=== PATIENT | female | born 1970 | race Caucasian/White ===

== ENCOUNTER 2018-05-11 03:29 | Emergency (ER) | payer SELFPAY ==
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
[2018-05-11 07:00] VITALS: PULSE 79; RESP 18; O2SAT 99
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
--- NOTE | 2018-05-11 08:59 | CT ---
Date of service: 05/11/2018 PROCEDURE: CT HEAD WITHOUT CONTRAST. HISTORY: r/o fx and ICH COMPARISON: None available. TECHNIQUE: Axial computed tomography images were obtained through the head/brain without intravenous contrast. Radiation dose: Total exam DLP = mGy-cm. This CT exam was performed using one or more of the following dose reduction techniques: Automated exposure control, adjustment of the mA and/or kV according to patient size, and/or use of iterative reconstruction technique. FINDINGS: HEMORRHAGE: No intracranial hemorrhage. BRAIN: No mass effect or edema. No atrophy or chronic microvascular ischemic changes. VENTRICLES: Unremarkable. No hydrocephalus. CALVARIUM: Unremarkable. PARANASAL SINUSES: Unremarkable as visualized. No significant inflammatory changes. MASTOID AIR CELLS: Unremarkable as visualized. No inflammatory changes. OTHER FINDINGS: Small radiopaque density along the right globe possibly representing postsurgical material versus calcification versus radiopaque foreign body. Correlate clinically. . IMPRESSION: No acute hemorrhage.
[2018-05-11 09:04] VITALS: BP 100/58; TEMP 98.3
--- NOTE | 2018-05-11 09:08 | CT ---
Date of service: 05/11/2018 PROCEDURE: HISTORY: r/o fx COMPARISON: TECHNIQUE: FINDINGS: Small radiopaque density at the anterior lateral age of the right globe which could represent postsurgical material versus calcification versus foreign body. Right facial and left facial, nasal, maxillary soft tissue swelling and hematoma acute comminuted displaced left nasal an the left nasal tip bone fracture. IMPRESSION: As above.
== END 2018-05-11 09:27 | disposition home or self-care (01) ==
LOC: ED 03:29
DX: S00.83XA Contusion of other part of head, initial encounter (principal); S02.2XXA Fracture of nasal bones, initial encounter for closed fracture; Y04.0XXA Assault by unarmed brawl or fight, initial encounter; Y92.9 Unspecified place or not applicable